=== PATIENT | female | born 1990 | race African-American/Black ===

== ENCOUNTER 2019-06-13 15:57 | Emergency (ER) | payer OTHER ==
[~2019-06-13] VITALS: Ht 154.9 cm; Wt 56.6 kg
[2019-06-13] MEDS ORDERED: WELLTAB40 PO (16:06)
[2019-06-13] MEDS ORDERED: bcp (16:06)
[2019-06-13 16:37] LABS: BASO % 0.2 % (0.0-1.0); EOS # 0.6 10^3/uL (0.0-0.5); EOS % 6.5 % (0.0-3.0); HEMATOCRIT 38.5 % (36.0-47.0); HEMOGLOBIN 13.4 g/dl (12.0-15.5); LYMPH # 2.8 10^3/uL (1.5-5.0); LYMPH % 28.7 % (24.0-44.0); MEAN CORPUSCULAR HEMOGLOBIN 32.3 pg (27.0-33.0); MEAN CORPUSCULAR HGB CONC 34.8 g/dl (32.0-36.5); MEAN CORPUSCULAR VOLUME 92.8 fl (80.0-96.0); MONO # 1.1 10^3/uL (0.0-0.8); MONO % 11.2 % (0.0-5.0); NEUTROPHILS # 5.2 10^3/uL (1.5-8.5); NEUTROPHILS % 53.2 % (36.0-66.0); PLATELET COUNT, AUTOMATED 486 10^3/uL (150-450); RED BLOOD COUNT 4.15 10^6/uL (4.00-5.40); WHITE BLOOD COUNT 9.8 10^3/uL (4.0-10.0)
[2019-06-13] MEDS ORDERED: KETOROLAC 30 MG/ML VIAL (J1885) IV ONE (17:15)
[2019-06-13 17:19] LABS: ALBUMIN 3.4 GM/DL (3.2-5.2); ALT/SGPT 25 U/L (12-78); BILIRUBIN,DIRECT < 0.1 MG/DL (0.0-0.2); BILIRUBIN,TOTAL 0.3 MG/DL (0.2-1.0); BLOOD UREA NITROGEN 12 MG/DL (7-18); CALCIUM LEVEL 8.9 MG/DL (8.5-10.1); CARBON DIOXIDE LEVEL 27 MEQ/L (21-32); CHLORIDE LEVEL 102 MEQ/L (98-107); CREATININE FOR GFR 0.96 MG/DL (0.55-1.30); GLOMERULAR FILTRATION RATE > 60.0 (>60); GLUCOSE, FASTING 97 MG/DL (70-100); LIPASE 108 U/L (73-393); POTASSIUM SERUM 4.1 MEQ/L (3.5-5.1); SODIUM LEVEL 136 MEQ/L (136-145)
[2019-06-13] MEDS ORDERED: ISOVUE-370 76% 100ML VIAL (Q9967) As Ordered ONE (17:22)
--- NOTE | 2019-06-13 18:38 | REPVR ---
PROCEDURE INFORMATION: Exam: CT Abdomen And Pelvis With Contrast Exam date and time: 06/13/2019 5:13 PM Clinical history: 29 years old, female; Abdominal pain; Periumbilical; Additional info: Periumbilic pain TECHNIQUE: Imaging protocol: Computed tomography of the abdomen and pelvis with intravenous contrast. Radiation optimization: All CT scans at this facility use at least one of these dose optimization techniques: automated exposure control; mA and/or kV adjustment per patient size (includes targeted exams where dose is matched to clinical indication); or iterative reconstruction. Contrast material: ISOVUE 370; Contrast volume: 100 ml; Contrast route: IV; COMPARISON: No relevant prior studies available. FINDINGS: Liver: There is an indeterminate low-density lesion measuring 8 mm with a density of approximately 50 Hounsfield units within the right hepatic lobe on axial images 35 through 37. Followup imaging evaluation is recommended. For low risk patients, recommend follow up CT or MRI in 6 months. For average risk patients, recommend multiphasic MRI in 6 months. For high risk patients, recommend multiphasic MRI and consider biopsy (core preferred). Gallbladder and bile ducts: Unremarkable. No calcified stones. No ductal dilation. Pancreas: Unremarkable. No ductal dilation. Spleen: Unremarkable. No splenomegaly. Adrenals: Normal. No mass. Kidneys and ureters: Unremarkable. No stones. No hydronephrosis. Stomach and bowel: Unremarkable. No obstruction. No mucosal thickening. Appendix: No evidence of appendicitis. Intraperitoneal space: Small volume of pelvic ascites within the posterior cul-de-sac. Vasculature: Unremarkable. No abdominal aortic aneurysm. Lymph nodes: Unremarkable. No enlarged lymph nodes. Bladder: Unremarkable as visualized. Reproductive: Unremarkable as visualized. Bones/joints: No acute fracture. Soft tissues: Unremarkable. IMPRESSION: 1. Small pelvic ascites, nonspecific. 2. There is an indeterminate low-density lesion measuring 8 mm with a density of approximately 50 Hounsfield units within the right hepatic lobe on axial images 35 through 37. Followup imaging evaluation is recommended. For low risk patients, recommend follow up CT or MRI in 6 months. For average risk patients, recommend multiphasic MRI in 6 months. For high risk patients, recommend multiphasic MRI and consider biopsy (core preferred). Electronically signed by: Pancho Jara On 06/13/2019 18:38:19 PM
[2019-06-13 20:00] VITALS: BP 121/67
--- NOTE | 2019-06-14 09:56 | ED PDOC ---
Post-Departure Follow-Up certified letter sent pertaining to radiology report Katina Bob MD Jun 14, 2019 09:56
== END 2019-06-13 20:00 | disposition home or self-care (01) ==
LOC: M ED 15:57
DX: R19.7 Diarrhea, unspecified (principal); R93.2 Abnormal findings on diagnostic imaging of liver and biliary tract; Z88.2 Allergy status to sulfonamides
CPT/HCPCS: 36415; 74177; 80048; 80076; 81001; 83690; 85025; 96374; 99284; J1885; Q9967

== ENCOUNTER → 2019-06-14 | Outpatient (REF) | payer OTHER ==
[~2019-06-14] MED LIST: WELLTAB40 PO; bcp
== END ==
LOC: M LAB REF 09:47
PROVIDERS: ATTEND Physician Assistant
DX: R19.7 Diarrhea, unspecified (principal)

== ENCOUNTER → 2020-04-19 | Outpatient (REF) | payer OTHER | LOC: M SFHCLUC 17:34 | PROVIDERS: ATTEND Physician Assistant | DX: R07.0 Pain in throat (principal) ==